=== PATIENT | male | born 1990 | race Caucasian/White ===

== ENCOUNTER 2023-07-08 14:36 | Emergency (ER) | payer SELFPAY ==
[~2023-07-08] VITALS: Ht 165.1 cm; Wt 54.4 kg
[2023-07-08 15:01] VITALS: BP 103/55; PULSE 99; RESP 19; TEMP 97.1; O2SAT 98
[2023-07-08] MEDS ORDERED: CEPH-588 PO (15:13)
[2023-07-08] MEDS ORDERED: IBUP-2213 PO (15:13)
[2023-07-08] MEDS: IBUPROFEN 600 MG TAB PO ONE (15:18)
== END 2023-07-08 15:20 | disposition home or self-care (01) ==
LOC: MED 14:36
DX: L02.412 Cutaneous abscess of left axilla (principal); Z79.1 Long term (current) use of non-steroidal anti-inflammatories (NSAID); Z79.2 Long term (current) use of antibiotics
CPT/HCPCS: 99283